=== PATIENT | female | born 1945 | race Two or more races ===

== ENCOUNTER 2019-04-08 10:43 | Outpatient (CLI) | payer OTHER | END 2019-04-08 16:10 | disposition home or self-care (01) | LOC: SONOGRAMA 10:43 | DX: E04.2 Nontoxic multinodular goiter (principal) ==

== ENCOUNTER 2021-05-22 09:00 | Outpatient (CLI) | payer OTHER | END 2021-05-22 16:42 | disposition home or self-care (01) | LOC: PPH VACUNA 09:00 | PROVIDERS: ATTEND Emergency Medicine Pediatric Emergency Medicine | DX: Z23 Encounter for immunization (principal) ==